=== PATIENT | female | born 1990 | race Two or more races ===

== ENCOUNTER 2024-02-27 06:35 | Emergency (ER) | payer OTHER, SELFPAY ==
--- NOTE | ~2024-02-27 | US_ITS ---
EXAMINATION: US OBSTETRICAL ULTRASOUND CLINICAL INFORMATION: Pelvic pain, positive hCG. COMPARISON: None available. LMP: December 13, 2023. Gestational age by maternal dates is 10 weeks 1 day. Estimated date of delivery by maternal dates is September 18, 2024. TECHNIQUE: Ultrasound images of the pelvis. FINDINGS: There is a single intrauterine gestational sac with visible yolk sac, embryo/fetus, and cardiac activity. HR: 135 beats per minute. CRL (crown rump length): 0.79 cm (6 weeks 6 days +/- 4 days). MAYI (Estimated Date of Delivery): October 16, 2024 +/- 4 days. MATERNAL ADNEXA: The right maternal ovary measures 3.9 x 2.4 x 2.6 cm. Limited visualization due to bowel gas. The left maternal ovary measures 3.8 x 2.6 x 2.4 cm. Limited visualization due to bowel gas. No significant free fluid in the cul-de-sac. US/US OB <= 14 weeks fetus IMPRESSION: 1. Single intrauterine gestation with ultrasound gestational age of 6 weeks 6 days +/- 4 days. 2. Estimated date of delivery is October 16, 2024 +/- 4 days. 3. No significant free fluid in the cul-de-sac. This study was presented today to February 27, 2024 for interpretation. Stat results provided at this time as requested by referring provider. Electronically signed by: Ronda Dee MD 02/27/2024 11:37 AM ELAINE
[2024-02-27 06:46] VITALS: BP 101/65; PULSE 78; RESP 18; TEMP 37.3; O2SAT 98
[2024-02-27 07:24] LABS: MANUAL DIFF FLAG NO
[2024-02-27 07:25] LABS: Basophils Percent Auto 0.6 % (0-2); Eosinophils Absolute Auto 0.1 X10*3/uL (0.0-0.4); Eosinophils Percent Auto 2.6 % (0-4); Hematocrit 39.1 % (37.0-47.0); Hemoglobin 13.4 g/dl (12.0-16.0); Lymphocytes Absolute Auto 1.6 X10*3/uL (1.2-4.9); Lymphocytes Percent Auto 47.4 % (20-40); Mean Corpuscular HGB Conc 34.3 g/dl (31.0-35.0); Mean Corpuscular Hemoglobin 28.8 pg (27.0-33.0); Mean Corpuscular Volume 84.1 fL (80.0-98.0); Monocytes Absolute Auto 0.4 X10*3/uL (0.1-1.2); Neutrophils Absolute Auto 1.3 x10*3/uL (2.0-8.3); Neutrophils Percent Auto 37.4 % (45-73); Platelet Count 171 X10*3/uL (160-400); Red Blood Count 4.65 X10*6/uL (4.20-5.50); Red Cell Distribution Width 13.2 % (11.0-16.0); White Blood Count 3.4 X10*3/uL (4.8-10.8)
[2024-02-27 07:26] LABS: Appearance Urine Clear; Color Urine Yellow; Glucose Urine UA Negative (Negative); Leukocyte Esterase Urine Negative (Negative); Nitrite Urine Negative (Negative); Urine Blood Negative (Negative); Urine Ketones Negative (Negative); Urine Protein Negative (Neg-Trace)
[2024-02-27 07:31] LABS: Bacteria Urine 2+ (None Seen); Hyaline Casts Urine 0-2 /LPF (0-2); RBC Urine 0-2 /HPF (0-2); WBC Urine 0-5 /HPF (0-5)
--- NOTE | 2024-02-27 07:43 | ED.URI ---
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 She has no bleeding. She states she feels like she has the flu and her child has the flu. She has not taken any OTC medications. She has not traveled, she is unclear if she is has not taken test at home. MD elicited complaint: rhinorrhea and other (lower abdominal pain) Onset (ago): day(s) (1) Consistency: constant Severity: mild Description of mucous: clear Able to tolerate fluids by mouth: Yes Exacerbating factors: nothing Relieving factors: nothing Context: sick contacts (child had the flu) Associated symptoms: rhinorrhea, abdominal pain and nausea Treatments prior to arrival: none Related Data Previous Rx's ?Medication ?Instructions ?Recorded acetaminophen 325 mg tablet 650 mg (2 x 325 mg) PO Q6H PRN 02/27/24 (Aminofen) fever or pain #30 tabs doxylamine succinate 25 mg tablet 25 mg PO BEDTIME PRN sleep #30 tabs 02/27/24 (Nighttime Sleep-Aid (doxylamine)) vitamin#30 30 mg iron-10 1 cap PO DAILY #30 caps 02/27/24 mg iron-folic acid 1 mg-omg3 capsule pyridoxine (vitamin B6) 25 mg 25 mg PO DAILY #30 tabs 02/27/24 tablet Allergies Allergy/AdvReac Type Severity Reaction Status Date / Time No Known Allergies Allergy Verified 02/27/24 06:51 Review of Systems Review of Systems: Constitutional : No Weight loss, No Fever, No Chills ENT/Mouth : No sore throat, pos Rhinorrhea Eyes: No Swelling, No Redness Cardiovascular : No Chest Pain, No SOB, NoEdema Respiratory : No Cough, No Sputum, No Wheezing Gastrointestinal : Positive Nausea, no Vomiting, no Diarrhea, positive abdominal Pain, No Hematochezia, No Melena Genitourinary : No Dysuria, No Urinary Frequency, No Hematuria, No Urgency Musculoskeletal : No joint pain, pos Myalgias, No Joint Swelling Skin : No Skin Lesions, No rash Neuro : No Weakness, No Numbness, No Dizziness, No Headache All other systems reviewed and are negative. COUNTS INCLUDE 234 BEDS AT THE [facility] Past Medical History Attestation statement: The following information was validated with the patient. Source: old records reviewed Medical History (Updated 02/27/24 @ 11:43 by Shelbi Chand DO) No pertinent past medical history Social History Social History (Updated 02/27/24 @ 07:51 by Shelbi Chand DO) Patient Tobacco Use Status: Never used Tobacco Smoked in Last 30 Days: No Use of substances other than those prescribed or required for medical reasons: No Advance Directives: No Advance Directives Information Provided: No Patient : No Physical Exam Vital Signs: Vital Signs: Last Vital Signs Temp 98.4 F 02/27/24 10:31 Pulse 67 02/27/24 10:31 Resp 16 02/27/24 10:31 BP 94/62 02/27/24 10:31 Pulse Ox 99 02/27/24 10:31 O2 Del Method Room Air 02/27/24 10:31 BMI result Body Mass Index 30.0 Appearance: Alert. Oriented X3. No acute distress. Eyes: Pupils equal, round and reactive to light. ENT: Pharynx normal. Neck: Normal inspection. Neck supple. CVS: Normal heart rate and rhythm. Pulses normal. Respiratory: No respiratory distress. Breath sounds normal. Abdomen: Soft and mild lower abd ttp Skin: Skin warm and dry. Normal skin color. Normal skin turgor. Extremities: No lower extremity edema. No calf ttp Neuro: Oriented X 3. No motor deficit. No sensory deficit. Medications Administered Discontinued Medications Generic Name Dose Route Start Last Admin Trade Name Criss PRN Reason Stop Dose Admin Acetaminophen 650 mg 02/27/24 07:46 02/27/24 08:15 Acetaminophen 325 Mg Tablet PO 02/27/24 07:47 650 mg ONCE ONE Administration Ondansetron HCl 4 mg 02/27/24 07:46 02/27/24 08:14 Ondansetron Odt 4 Mg Tab.Rapdis TRANSLINGU 02/27/24 07:47 4 mg ONCE ONE Administration Medical Decision Making Medical Decision Making MDM Narrative: 33 yo female with no PMH here with viral like illness and positive flu exposure at home she has no CP/SOB and her VS are stable, she also c/o suprapubic pain no discharge or bleeding her LMP was 12/12 concern for - her abdomen is not acute, she is well appearing. Labs, viral panel, US once hcg back. Doubt appendicitis has no RLQ pain. Differential Diagnosis Differential Diagnoses: The differential diagnosis associated with the presentation includes URI, flu, strep, lower abdominal pain no RLQ to suggest appendicitis, UTI vs vs ectopic Admission/Observation Consideration of admission/observation: Escalation of care including admission/observation considered no RUQ pain and no UTI, hemoglobin stable US shows IUP stable for DC Lab Data MDM Lab Attestation statement: I reviewed the patient's lab results. 02/27/24 07:15 02/27/24 07:15 Labs: Lab Results 02/27/24 02/27/24 02/27/24 Range/Units 07:15 07:18 08:51 WBC 3.4 L (4.8-10.8) X10*3/uL RBC 4.65 (4.20-5.50) X10*6/uL Hgb 13.4 (12.0-16.0) g/dl Hct 39.1 (37.0-47.0) % MCV 84.1 (80.0-98.0) fL MCH 28.8 (27.0-33.0) pg MCHC 34.3 (31.0-35.0) g/dl RDW 13.2 (11.0-16.0) % Plt Count 171 (160-400) X10*3/uL MPV 10.0 (9.4-12.3) fL Immature Gran % (Auto) 0.0 (0.0-0.4) % Neut % (Auto) 37.4 L (45-73) % Lymph % (Auto) 47.4 H (20-40) % Wise % (Auto) 12.0 H (2-11) % Eos % (Auto) 2.6 (0-4) % Baso % (Auto) 0.6 (0-2) % Lymph # (Auto) 1.6 (1.2-4.9) X10*3/uL Wise # (Auto) 0.4 (0.1-1.2) X10*3/uL Eos # (Auto) 0.1 (0.0-0.4) X10*3/uL Baso # (Auto) 0.0 (0.0-0.2) X10*3/uL Abs Immat Gran (auto) 0.00 (0.00-0.03) X10*3/uL Absolute Neuts (auto) 1.3 L (2.0-8.3) x10*3/uL Absolute Nucleated RBC 0.000 (0.0-0.012) X10*3/uL Nucleated RBC % (auto) 0.0 (0.0-0.2) /100WBC Sodium 135 (135-145) mmol/L Potassium 3.6 (3.3-5.1) mmol/L Chloride 107 (96-108) mmol/L Carbon Dioxide 22 (22-29) mmol/L Anion Gap 10 L (12-20) BUN 6 L (9-16) mg/dL Creatinine 0.69 (0.5-1.4) mg/dL Estim Creat Clear Calc 126.0 Estimated GFR > 60 Random Glucose 94 (60-115) mg/dL Calcium 8.8 (8.4-10.2) mg/dL Total Bilirubin 0.5 (0.0-1.0) mg/dL AST 57 H (5-31) U/L ALT 72 H (0-31) U/L Alkaline Phosphatase 65 (39-117) U/L Total Protein 7.3 (6.5-8.0) g/dL Albumin 4.2 (3.5-5.0) g/dL Lipase 29 (8-78) U/L Beta HCG, Quant 79680 mIU/mL Urine Color Yellow Urine Appearance Clear Urine pH 6.0 (5.0-9.0) Ur Specific Dilley 1.020 (1.005-1.025) Urine Protein Negative (Neg-Trace) mg/dL Urine Glucose (UA) Negative (Negative) mg/dL Urine Ketones Negative (Negative) mg/dL Urine Blood Negative (Negative) Urine Nitrite Negative (Negative) Ur Leukocyte Esterase Negative (Negative) Urine RBC 0-2 (0-2) /HPF Urine WBC 0-5 (0-5) /HPF Ur Squamous Epith Cells 6-10 (0-2) /HPF Urine Bacteria 2+ (None Seen) Hyaline Casts 0-2 (0-2) /LPF Influenza Type A (PCR) NEGATIVE (Negative) Influenza Type B (PCR) NEGATIVE (Negative) RSV RNA Qual (PCR) NEGATIVE (Negative) SARS-CoV-2 RNA (RT-PCR) NEGATIVE (Negative) S. pyogenes GrpA ZULEYMA Negative (Negative) Independent Interpretation I performed an independent interpretation of an: Ultrasound (+ IUP) Radiology Impression Discussion of test interpretation with radiology: I have reviewed the radiologist's reading. Prescription Management I considered prescription management with: Other Discharge Plan Discharge Clinical Impression: Acute viral syndrome Qualifiers: Weeks of gestation: less than 8 weeks Qualified Code(s): Z3A.01 - Less than 8 weeks gestation of Patient Disposition: Home, Self-Care Instructions: (ED), Viral Syndrome (ED) Additional Instructions: labs reassuring viral panel negative UA normal US shows 6 weeks US/US OB <= 14 weeks fetus IMPRESSION: 1. Single intrauterine gestation with ultrasound gestational age of 6 weeks 6 days +/- 4 days. 2. Estimated date of delivery is October 16, 2024 +/- 4 days. 3. No significant free fluid in the cul-de-sac. This study was presented today to February 27, 2024 for interpretation. Stat results provided at this time as requested by referring provider. Prescriptions: New acetaminophen [Aminofen] 325 mg tablet 650 mg PO Q6H PRN (Reason: fever or pain) Qty: 30 0RF PNV #[id number] 30 mg iron-10 mg iron-1 mg capsule 1 cap PO DAILY Qty: 30 0RF Nighttime Sleep-Aid (doxylamn) 25 mg tablet 25 mg PO BEDTIME PRN (Reason: sleep) Qty: 30 0RF pyridoxine (vitamin B6) 25 mg tablet 25 mg PO DAILY Qty: 30 0RF Referrals: [facility] [place] [Provider Group] Print Language: Gena Cuevas
[2024-02-27 07:47] LABS: Alanine Aminotransferase 72 U/L (0-31); Albumin Level 4.2 g/dL (3.5-5.0); Alkaline Phosphatase 65 U/L (39-117); Anion Gap 10 (12-20); Aspartate Amino Transferase 57 U/L (5-31); Bilirubin Total 0.5 mg/dL (0.0-1.0); Blood Urea Nitrogen 6 mg/dL (9-16); Calcium 8.8 mg/dL (8.4-10.2); Carbon Dioxide 22 mmol/L (22-29); Chloride 107 mmol/L (96-108); Estimated Glomerular Filt Rate > 60; Glucose Random 94 mg/dL (60-115); Lipase 29 U/L (8-78); Potassium 3.6 mmol/L (3.3-5.1); Sodium 135 mmol/L (135-145); Total Protein 7.3 g/dL (6.5-8.0)
[2024-02-27 08:14] LABS: HCG Quantitative 81929 mIU/mL
[2024-02-27] MEDS: Ondansetron ODT 4 MG TAB.RAPDIS TRANSLINGU (08:14)
[2024-02-27] MEDS: Acetaminophen 325 MG TABLET 650 MG PO (08:15)
[2024-02-27 08:31] VITALS: BP 127/73; PULSE 82; RESP 16; TEMP 36.8; O2SAT 99
[2024-02-27 09:12] LABS: IDNOW Serial# 58CA691E; Strep A Nucleic Acid Negative (Negative)
[2024-02-27 09:41] LABS: Influenza A PCR NEGATIVE (Negative); Influenza B PCR NEGATIVE (Negative); Resp Syncy Virus RNA Qual PCR NEGATIVE (Negative); SARS COV2 PCR INHOUSE NEGATIVE (Negative)
[2024-02-27 10:31] VITALS: BP 94/62; PULSE 67; RESP 16; TEMP 36.9; O2SAT 99
[2024-02-27 11:56] VITALS: BP 95/67; PULSE 71; RESP 14; TEMP 37; O2SAT 98
== END 2024-02-27 11:59 | disposition home or self-care (01) ==
PROVIDERS: Emergency Provider Emergency Medicine
DX: O98.511 Other viral diseases complicating pregnancy, first trimester (principal); R10.2 Pelvic and perineal pain; R11.0 Nausea; J34.89 Other specified disorders of nose and nasal sinuses; Z3A.08 8 weeks gestation of pregnancy; Z03.818 Encounter for observation for suspected exposure to other biological agents ruled out; Z79.899 Other long term (current) drug therapy
CPT/HCPCS: 0241U; 36415; 76801; 80053; 81001; 83690; 84702; 85025; 87651; 99284